=== PATIENT | female | born 1990 | race Caucasian/White ===

== ENCOUNTER → 2017-04-04 | Outpatient (CLI) | payer OTHER ==
[~2017-04-04] MED LIST: CEPH500C PO; HYDR-5688 PO; PRENTAB26 PO; VALA500T60 PO
[2017-04-04 11:37] LABS: URINE APPEARANCE CLEAR (CLEAR); URINE BILIRUBIN NEG (NEG); URINE COLOR YELLOW; URINE EPITHELIAL CELL AUTO >30 /lpf (0-5); URINE NITRITE NEG (NEG); UROBILINOGEN NEG (NEG)
[2017-04-04 11:54] LABS: MANUAL MICROSCOPIC REQUIRED? NO; REVIEW REQ? NO
[2017-04-04 12:11] LABS: HEMATOCRIT 35.9 % (37-47)
[2017-04-04 13:19] LABS: GTGD 50 Grams
== END | disposition home or self-care (01) ==
LOC: C.LAB1850 10:05
PROVIDERS: ATTEND Obstetrics & Gynecology
DX: Z34.90 Encounter for supervision of normal pregnancy, unspecified, unspecified trimester (principal)

== ENCOUNTER → 2017-04-25 | Outpatient (CLI) | payer BC, OTHER | END | disposition home or self-care (01) | LOC: C.LABSPEC 17:26 | PROVIDERS: ATTEND Obstetrics & Gynecology | DX: Z34.90 Encounter for supervision of normal pregnancy, unspecified, unspecified trimester (principal) ==

== ENCOUNTER 2017-05-20 00:47 | Inpatient (IN) | payer OTHER ==
[~2017-05-20] VITALS: Ht 167.6 cm; Wt 95.0 kg
[~2017-05-20 00:47] MED LIST changes: -CEPH500C PO; -HYDR-5688 PO; -VALA500T60 PO
[2017-05-20] MEDS ORDERED: LACTATED RINGER'S 1000ML 1,000 ML IV PRN (00:57)
[2017-05-20] MEDS ORDERED: LACTATED RINGER'S 1000ML 1,000 ML IV SCH (00:57)
[2017-05-20] MEDS ORDERED: FENTANYL CITRATE INJ 50 MCG/1 ML 2 ML VIAL ONE (01:07)
[2017-05-20] MEDS ORDERED: BUPIVACAINE 0.25% 30 ML VIAL ONE (01:07)
[2017-05-20] MEDS ORDERED: EpHEDrine SULFATE INJ 50 MG/ML AMP ONE (01:07)
[2017-05-20] MEDS ORDERED: FENTANYL 2MCG/ML ROPIV 1.25MG/ML 100ML BAG EPI ONE (01:07)
[2017-05-20 01:15] LABS: HEMATOCRIT 35.3 % (37-47); MEAN CELL VOLUME 84.9 fL (80-100); MEAN CORPUSCULAR HEMOGLOBIN 27.9 pg (25-34); MEAN CORPUSCULAR HGB CONC 32.9 g/dl (32-36); PLATELET COUNT 155 K/uL (130-400); RED BLOOD COUNT 4.16 M/uL (4.2-5.4); WHITE BLOOD COUNT 13.47 K/uL (4.8-10.8)
[2017-05-20] MEDS ORDERED: VALA500T60 PO (01:25)
[2017-05-20 01:28] VITALS: Ht 167.6 cm; Wt 95.0 kg
[2017-05-20] MEDS ORDERED: NALOXONE HCL INJ 1 MG in SODIUM CHLORIDE 0.9% 1000ML 1,000 ML IV PRN (01:59)
[2017-05-20] MEDS ORDERED: LACTATED RINGER'S 1000ML 500 ML IV PRN (01:59)
[2017-05-20] MEDS ORDERED: PROMETHAZINE HCL INJ 6.25 MG in SODIUM CHLORIDE 0.9% 50ML 50 ML IV PRN (02:00)
[2017-05-20] MEDS ORDERED: NALOXONE HCL INJ 0.4 MG/1 ML VIAL/CARP IV PRN (02:00)
[2017-05-20] MEDS ORDERED: FENTANYL 2MCG/ML ROPIV 1.25MG/ML 100ML BAG EPI PRN (02:00)
[2017-05-20] MEDS ORDERED: NALBUPHINE HCL INJ 10 MG/ML AMP IV PRN (02:00)
[2017-05-20] MEDS ORDERED: ONDANSETRON INJ 2 MG/ML 2 ML VIAL IV PRN (02:00)
[2017-05-20] MEDS ORDERED: EpHEDrine SULFATE INJ 50 MG/ML AMP IV PRN (02:00)
[2017-05-20] MEDS ORDERED: DiphenhydrAMINE HCL 50 MG/ML VIAL IV PRN (02:00)
[2017-05-20] MEDS ORDERED: OXYTOCIN 30 UNITS/500ML NSS IV ONE (04:38)
[2017-05-20] MEDS ORDERED: SUPERCREAM 0.870 % 15GM JAR EXT PRN (04:45)
[2017-05-20] MEDS ORDERED: HYDROCORTISONE ACETATE 25 MG SUPP PR PRN (04:45)
[2017-05-20] MEDS ORDERED: OXYCODONE/ACETAMINOPHEN 5-325 TAB PO PRN (04:45)
[2017-05-20] MEDS ORDERED: OXYTOCIN 30 UNITS/500ML NSS IV PRN (04:45)
[2017-05-20] MEDS ORDERED: LANOLIN OINT EXT PRN ×2 (04:45)
[2017-05-20] MEDS ORDERED: BENZOCAINE 20% AER SPR 82.5 GM CAN EXT PRN (04:45)
--- NOTE | 2017-05-20 04:50 | Vaginal Delivery Summary ---
Vaginal Delivery Summary Vaginal delivery summary The patient progressed to complete under epidural anesthesia she then began to push she spontaneously vaginally delivered a viable male from the cephalic presentation the head delivered in the left occiput anterior position followed by the anterior shoulder followed by the posterior shoulder followed by the body the baby was then placed on mother's abdomen and spontaneous cry was heard. Delayed cord clamping was performed and after 1 minute the cord was doubly clamped and cut. The placenta was then delivered spontaneously intact with a three-vessel cord. The uterus and vagina were cleared of all clots and debris. Pitocin was given. The uterus became firm. The cervix vagina and perineum were inspected and a first-degree perineal laceration was noted and repaired in standard fashion with 3-0 Vicryl. Excellent hemostasis was noted. Sponge, instrument and needle counts were correct 2 at the conclusion of the delivery. The mother and baby recovered well in the room in stable and good condition. Apgars 9 and 10. Estimated blood loss 300 mL.
[2017-05-20 06:45] VITALS: BP 112/74; PULSE 89; TEMP 36.7
[2017-05-20 07:20] VITALS: BP 94/57; PULSE 91; TEMP 36.9
[2017-05-20] MEDS: DOCUSATE SODIUM 100 MG CAP PO SCH ×2 (08:37→19:48)
--- NOTE | 2017-05-20 08:49 | Anesthesia Procedure Note ---
Anesthesia Epidural Removal Nt Date & Time May 20, 2017 at 08:48 Vital Signs Pain Intensity: 0.0 Vital Signs Past 12 Hours Date Time Temp Pulse Resp B/P (MAP) Pulse Ox O2 Delivery O2 Flow Rate FiO2 05/20/17 07:20 36.9 91 18 94/57 (69) Room Air 05/20/17 07:15 Room Air 05/20/17 06:45 36.7 89 18 112/74 Notes Mental Status: alert / awake / arousable, participated in evaluation Nausea / Vomiting: adequately controlled Pain: adequately controlled Airway Patency, RR, SpO2: stable & adequate BP & HR: stable & adequate Hydration State: stable & adequate Neuraxial Anesthesia: was administered Anesthetic Complications: no major complications apparent, pt satisfied with anesthetic care Epidural: removed without complications, with tip intact
[2017-05-20] MEDS: IBUPROFEN 600 MG TAB PO PRN ×3 (10:36→19:51)
[2017-05-20 11:50] VITALS: BP 98/62; PULSE 81; TEMP 36.7
[2017-05-20 16:15] VITALS: BP 111/77; PULSE 63; TEMP 36.7
[2017-05-20 19:45] VITALS: BP 116/77; PULSE 69; TEMP 36.4; O2SAT 98
[2017-05-20 23:50] VITALS: BP 104/66; PULSE 66; TEMP 36.4; O2SAT 96
[2017-05-21 03:45] VITALS: BP 100/69; PULSE 70; TEMP 36.5; O2SAT 96
--- NOTE | 2017-05-21 06:23 | OB/GYN Progress Note ---
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 Subjective conversation w/ patient, physical exam, chart review, lab review Ambulation: ambulating normally Voiding: no voiding problems Passing Gas: Yes (No BM yet) Diet Tolerance: Regular Diet Lochia: Small Feeding Type: Breast Feeding Pain: Says cramping with breast feeding only Review of Systems Constitutional: No fever, No chills Respiratory: No cough, No shortness of breath Cardiac: No chest pain Abdomen: No nausea, No vomiting, No diarrhea Female : No dysuria Objective Vital Signs Date Time Temp Pulse Resp B/P (MAP) Pulse Ox O2 Delivery O2 Flow Rate FiO2 05/21/17 03:45 36.5 70 16 100/69 (79) 96 Room Air 05/20/17 23:50 36.4 66 16 104/66 (79) 96 Room Air 05/20/17 23:50 Room Air 05/20/17 19:45 36.4 69 16 116/77 (90) 98 Room Air 05/20/17 19:45 Room Air 05/20/17 16:15 36.7 63 18 111/77 (88) Room Air 05/20/17 11:50 36.7 81 18 98/62 (74) Room Air 05/20/17 07:20 36.9 91 18 94/57 (69) Room Air 05/20/17 07:15 Room Air 05/20/17 06:45 36.7 89 18 112/74 Physical Exam General Appearance: WELL-APPEARING, WD/WN, NO APPARENT DISTRESS Respiratory/Chest: lungs clear, normal breath sounds Cardiovascular: regular rate, rhythm Abdomen: non tender, soft Fundus: Firm, Relation to Umbilicus (approx one down) Extremities: normal range of motion, non-tender, no pedal edema, no calf tenderness Laboratory Results Last 24 Hours Test 05/21/17 04:44 Assessment and Plan Post- Day Number: 1 Continue Routine Care: 27yo s/p , now PPD #1. - Blood type O pos. GBS negative. Rubella immune. - Vital signs reviewed and stable. - Pain controlled with motrin and percocet. - No leg swelling or tenderness on calf palpation. Encourage ambulation. - Encourage breast feeding. - Hemoglobin: 11.6, this am pending. Bleeding has improved. Continue to monitor clinically. -Continue routine post-vaginal delivery care. - Pt agreed with above plan, all current questions answered. Nathaniel Leija MD, PGY1 Physical Medicine Specialist Physician Supervision Note: I was present with Dr. Leija during the history and exam. I discussed the case with the resident and agree with the findings and plan as documented in the note. Any exceptions or clarifications are listed here: PPD#1 doing well. Would like to go home today. Discharge instructions discussed. RTO 6w. Documented By: Ludmila Thurman Resident Tracking Resident Involvement: Resident Care Provided Care Provided: OB Delivery (morning rounds)
[2017-05-21 07:24] VITALS: BP 91/56; PULSE 67; TEMP 36.4
--- NOTE | 2017-05-21 07:31 | Discharge Instructions ---
Discharge Instructions Date of Service May 21, 2017. Admission Reason for Admission: Spontaneous Onset Of Labor Discharge Discharge Diagnosis / Problem: Recovery from vaginal delivery Discharge Goals Goal(s): Routine recovery after delivery Medications Continue Dispensed Medications: supercream, dermaplast, tucks, lansinoh Activity Recommendations Activity Limitations: per Instructions/Follow-up section . Instructions / Follow-Up Instructions / Follow-Up ACTIVITY RECOMMENDATIONS: * Gradual return to full activity over the next 2-3 weeks. * No lifting - nothing heavier than baby over the next 2-3 weeks. * Do not engage in vigorous exercise, sexual activity or sports until cleared by your physician. * Do not drive or operate any motorized equipment until cleared by your physician. * You may shower/bathe daily. MEDICATIONS: For discomfort or pain, you may use Acetaminophen (Tylenol), Ibuprofen (Advil), or Naproxen (Aleve) following the package directions. For constipation you may use Colace following the package directions. BREAST CARE: If you are not breast feeding: * Wear a supportive bra 24 hours a day for one to two weeks. * Avoid stimulating your breasts and nipples as much as possible during the first few weeks after delivery. * When taking a shower, have the warm water hit your back, not breasts. * When your breasts feel full, apply ice packs. Usually three to four times a day helps ease the discomfort. * Take a mild pain medication (Tylenol / Motrin) when you are uncomfortable. If breast feeding: * Use breast milk to lubricate nipples. Lansinoh cream may be used for sore nipples. You do not need to remove cream prior to breast feeding. If using a different brand of cream, check the label for directions regarding removal of cream prior to nursing. * Wear a supportive bra. * If having problems with breasts or breast feeding, call a residential solar consultant or your health care provider. EPISIOTOMY CARE: After delivery, if you have an episiotomy (stitches), the following steps will ease discomfort and aid healing. * For the first 24 hours after delivery, place ice packs next to your episiotomy to help reduce swelling. * After the first 24 hour-period, sitz baths, either portable or in the tub, are suggested. A shower with a shower arm sprayed over the episiotomy may be comforting. * Aundrea care should be done after each voiding and bowel movement. Squirt warm water from a plastic bottle over the perineum (region of the body between the anus and urinary opening) and pat dry. * Use Dermoplast to ease discomfort. Shake container. Preemption directly over the episiotomy. Place a Tucks on a clean sanitary pad next to your episiotomy. SPECIAL CARE INSTRUCTIONS: When you are discharged from the hospital, it is important for you to follow the instructions listed below: * During the first week at home, you should be able to care for yourself and your baby. In addition, the usual light household activities are encouraged. * Limit your activities to the way you feel. Do not try to clean the house or move furniture. Be sensible. * If you actively engage in sports and have done so up until the time of your delivery, you may resume these activities as soon as you feel able. This may take up to one month or even longer. Use good judgment. * Continue to take your vitamins for at least six weeks after the of your baby. * Your diet need not be limited unless you were on a special diet before your delivery. Breast-feeding mothers need around 2500 calories per day and at least 64-80 ounces of fluid per day (8 to 10 glasses). * You should eat foods from the four major food groups. Crash diets or fad diets are to be avoided. Eating lean meats, fresh fruits and vegetables, low-fat dairy products, high fiber foods and a regular exercise program, will help you get back to your pre- weight without putting your health at risk. * Constipation is sometimes a problem after delivery. Take a mild laxative as needed. If breast feeding, Milk of Magnesia is acceptable to use. You may use a suppository or Fleets enema if no episiotomy. * A daily shower or tub bath is suggested. Be sure to thoroughly and gently dry the perineum. * A bloody vaginal discharge will usually continue until around four weeks post . A small amount of bleeding may continue for as long as six weeks. Vaginal discharge changes from the bright red bleeding after delivery to pink then brownish and finally yellowish-pink before becoming white and disappearing. * Bleeding may increase with activity. Your first period may come in 4-8 weeks. If you are breast feeding, your period may be delayed even longer. * Tama (sex) can begin whenever both you and your partner feel comfortable and do not have any form of genital infection. It is recommended that you wait at least six weeks for internal and external healing to occur. If you have questions, please talk to your health care practitioner. A condom should be used to prevent infection and . * Foreplay, gentle intercourse and lubrication is very important the first several times to prevent pain. A water-based lubricant such as K-Y jelly or Astroglide may be used. * If you have RH negative blood and your baby is RH positive, you will receive RHOGAM by injection prior to discharge. The nurse will give you a card to keep with you that has the date and place that you received RHOGAM after delivery. * During your care, you had a Rubella screen done to check for the presence of rubella antibodies in your blood. If your test was negative, you will receive a Rubella vaccine prior to discharge. This vaccine may cause a fever, soreness at the injection site and flu-like symptoms. If these symptoms persist, notify your health care practitioner. is not advised for one month after a Rubella vaccine. * Verbalizes understanding of car seat law as reviewed with patient nursing. * Car Seat hand-out given and reviewed with patient by nursing. * Shaken baby information reviewed with patient by nursing. Call you doctor if: * Heavy bleeding (saturating several pads an hour) or passing clots the size of your fist. * A fever >101 degrees F (38.3 degrees C) on two occasions four hours apart and /or chills. * Unusual pain in the pelvic or vaginal areas. * "Baby Blues" lasting longer than two weeks. If you have any questions or concerns, call your health care practitioner at . FOLLOW UP VISIT: * Please call the office at to schedule a 6 week examination. It is important you keep this appointment. It is important for you to make arrangements for either yearly or twice yearly check-ups thereafter. Current Hospital Diet Patient's current hospital diet: Regular OB Diet Discharge Diet Recommended Diet: Regular OB Diet Pending Studies Studies pending at discharge: no Medical Emergencies . Who to Call and When: Medical Emergencies: If at any time you feel your situation is an emergency, please call 911 immediately. . Non-Emergent Contact Non-Emergency issues call your: History Teacher . . "Provider Documentation" section prepared by Nathaniel Leija. . VTE Core Measure Inpt VTE Proph given/why not?: Treatment not indicated
[2017-05-21 08:18] LABS: HEMATOCRIT 34.5 % (37-47)
[2017-05-21] MEDS: DOCUSATE SODIUM 100 MG CAP PO SCH (09:03)
[2017-05-21] MEDS: IBUPROFEN 600 MG TAB PO PRN (09:04)
[2017-05-21 10:30] VITALS: BP_DIAS 56; PULSE 67; TEMP 36.4
[2017-05-21] MEDS ORDERED: BISACODYL 5 MG TABEC PO SCH (20:00)
== END 2017-05-21 10:35 | disposition home or self-care (01) | DRG 775 ==
LOC: C.OPB 00:47 → C.LD 00:48 → C.OPB 00:59 → C.OBG 06:51
PROVIDERS: ADMIT Obstetrics & Gynecology; ATTEND Obstetrics & Gynecology
PROC: 10E0XZZ Delivery of Products of Conception, External Approach (ICD-10-PCS; principal; 2017-05-20)
PROC: 0HQ9XZZ Repair Perineum Skin, External Approach (ICD-10-PCS; principal; 2017-05-20)
DX: O70.0 First degree perineal laceration during delivery (principal); Z37.0 Single live birth; Z3A.40 40 weeks gestation of pregnancy

== ENCOUNTER 2017-06-14 15:34 | Emergency (ER) | payer OTHER ==
[~2017-06-14] VITALS: Ht 165.1 cm; Wt 83.0 kg
[~2017-06-14 15:34] MED LIST changes: +VALA500T60 PO
[2017-06-14 15:52] VITALS: TEMP 36.6; Ht 165.1 cm; Wt 83.0 kg
[2017-06-14] MEDS ORDERED: HYDR-5688 PO (16:09)
[2017-06-14] MEDS ORDERED: CEPH500C PO (16:09)
[2017-06-14] MEDS ORDERED: HYDROCODONE/ACETAMOPHEN 5/325MG TAB PO ONE (16:15)
[2017-06-14] MEDS ORDERED: BACITRACIN OINT 15 GM TUBE EXT ONE (16:15)
[2017-06-14] MEDS ORDERED: CEPHALEXIN MONOHYDRATE 250 MG CAP PO ONE (16:15)
[2017-06-14 16:31] VITALS: BP 124/66; PULSE 72; O2SAT 99
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
== END 2017-06-14 16:33 | disposition home or self-care (01) ==
LOC: C.EDB 15:35 → C.EDD 16:33
DX: T23.009A Burn of unspecified degree of unspecified hand, unspecified site, initial encounter (principal); X58.XXXA Exposure to other specified factors, initial encounter

== ENCOUNTER → 2017-06-25 | Outpatient (CLI) | payer OTHER ==
[~2017-06-25] MED LIST changes: +HYDR-5688 PO
== END | disposition home or self-care (01) ==
LOC: C.PAPS 13:46
PROVIDERS: ATTEND Obstetrics & Gynecology
DX: Z39.2 Encounter for routine postpartum follow-up (principal)

== ENCOUNTER 2024-04-25 18:46 | Inpatient (IN) ==
[2024-04-25] MEDS ORDERED: LIDOCAINE 1% LOCAL 20 ML VIAL INFIL PRN (19:19)
[2024-04-25] MEDS: LACTATED RINGER'S 1,000 ML IV PRN (19:27)
[2024-04-25] MEDS ORDERED: BUPIVACAINE 0.25% PF 30 ML VIAL ONE (19:43)
[2024-04-25] MEDS ORDERED: SODIUM CHLORIDE 0.9% PF INJ 10 ML VIAL ONE (19:43)
[2024-04-25] MEDS ORDERED: ePHEDrine sulfate 50 MG/ML AMP ONE (19:43)
[2024-04-25] MEDS ORDERED: LIDOCAINE 2%/EPINEPHRINE 1:200,000 20 ML PF ONE (19:43)
[2024-04-25] MEDS ORDERED: fentANYL 2 MCG/ML BUPIVacaine 0.125%-NSS 100ML BAG ONE (19:43)
[2024-04-25] MEDS ORDERED: fentaNYL citrate PF 100 MCG/2 ML VIAL ONE (19:43)
[2024-04-25] MEDS ORDERED: OXYTOCIN 30 UNITS/500ML NSS IV ONE (19:44)
[2024-04-25 19:47] LABS: Hematocrit (blood only) 35.3 % (37.0-47.0); Mean Corpuscular Hemoglobin 28.6 pg (25.0-34.0); Mean Corpuscular Volume 84.2 fL (80.0-100.0); Mean Platelet Volume 11.2 fL (9.4-12.4); Platelet Count 171 K/uL (130-400); RDW Standard Deviation 42.6 fL (36.4-46.3); Red Blood Count 4.19 M/uL (4.20-5.40); White Blood Count 8.72 K/ul (4.8-10.8)
[2024-04-25] MEDS ORDERED: fentaNYL citrate PF 100 MCG/2 ML VIAL EPI PRN (19:58)
[2024-04-25] MEDS ORDERED: LIDOCAINE 2% MPF LOCAL 5 ML VIAL EPI PRN (19:58)
[2024-04-25] MEDS ORDERED: ROPIVACAINE 0.5% PF 5 MG/ML 20 ML VIAL EPI PRN (19:58)
[2024-04-25] MEDS ORDERED: SODIUM CHLORIDE 0.9% PF INJ 10 ML VIAL EPI PRN (19:58)
[2024-04-25] MEDS ORDERED: diphenhydrAMINE 50 MG/ML VIAL IV PRN (19:58)
[2024-04-25] MEDS ORDERED: NALOXONE HCL 0.4 MG/1 ML VIAL/CARP IV PRN (19:58)
[2024-04-25] MEDS ORDERED: BUPIVACAINE 0.25% PF 30 ML VIAL EPI PRN (19:58)
[2024-04-25] MEDS ORDERED: NALOXONE HCL 1 MG in SODIUM CHLORIDE 0.9% 1,000 ML IV PRN (19:58)
[2024-04-25] MEDS ORDERED: NALBUPHINE HCL 5 MG in SYRINGE 0 ML IV PRN (19:58)
[2024-04-25] MEDS ORDERED: ePHEDrine sulfate 50 MG/ML AMP IV PRN (19:58)
--- NOTE | 2024-04-25 19:58 | Anesthesiology Consultation ---
Date of Service April 25, 2024 Assessment & Plan Chart Review Chart Review: Patient NOT seen in Pre Admission Testing and Acceptable Risk for Labor Epidural Consults Requested none ASA ASA2 Proposed Anesthesia Anesthesia Type: Labor Epidural Risk / Benefits Reviewed With: PT / POA / Parent / Guardian, Accepts Plan and Informed Consent Obtained History Height/Weight Height: 5 ft 5 in Weight: 100.244 kg Allergies Allergy/AdvReac Type Severity Reaction Status Date / Time No Known Drug Allergies Allergy unkown Verified 04/25/24 18:58 Medications Home Medications Medication Instructions Recorded Confirmed Last Taken vit 168-iron 27 mg-folic 1 cap PO DAILY 09/13/23 04/25/24 Unknown acid 800 mcg-omega3 235 mg capsule (One-A-Day -1) Active Medications Generic Name Dose Route Start Last Admin Trade Name Freq PRN Reason Stop Dose Admin Lactated Ringer's 1,000 mls @ 125 mls/hr 04/25/24 19:19 04/25/24 19:27 Lr IV 04/27/24 19:18 999 mls/hr .Q8H PRN Administration L&D Protocol Protocol NPO Date Last Intake of Fluids: 04/25/24 Time Last Intake of Fluids: 19:30 Date Last Intake of Solids: 04/25/24 Time Last Intake of Solids: 14:30 Past Medical History Medical History History of chlamydia Herpes simplex type 1 infection IUD (intrauterine device) in place 08/14/2017 [place] Patient denies significant medical history Exercise / Class Metabolic Activity 1 > 8 Run/Swim/Ski/Tennis Past Family History Family History Mother Diabetes Aunt Breast cancer great maternal aunt Grandmother Breast cancer maternal great grandmother Denies family history of Ovarian cancer Colorectal cancer Uterine cancer Past Anesthesia History No Hx of Anesthesia Complications, Difficult Airway and No Family Hx of Anesthesia Complications History of PONV No Hx of PONV and No Hx of Motion Sickness Social History Smoking cigarettes per day: varies Do You Dip or Chew Tobacco: No Hx Alcohol Use: No Hx Substance Use: No substance use type: does not use Review of Systems ROS Unobtainable: All systems reviewed & are unremarkable except as noted in HPI & below Physical Exam Vital Signs Last Vital Signs Temp 37.0 C 04/25/24 19:00 Pulse 91 H 04/25/24 19:00 Resp 18 04/25/24 19:00 BP 121/82 04/25/24 19:00 ENMT Mouth: no TMJ abnormality Thyromental Distance: > or= 3.5 Finger Breadths Mallampati Class: III Neck normal visual inspection and trachea midline; neck extension not limited Respiratory normal respiratory effort Auscultation: lungs clear to auscultation bilaterally Cardiovascular Rate/Rhythm: regular rate and regular rhythm Heart Sounds: no murmur Musculoskeletal Spine: normal cervical ROM Extremities: full ROM of extremities Neurologic moves all extremities Psychiatric Orientation: alert and oriented x 3 Testing Laboratory Results 04/25/24 19:35
[2024-04-25] MEDS: fentaNYL citrate PF 100 MCG/2 ML VIAL EPI STA (20:21)
[2024-04-25] MEDS: BUPIVACAINE 0.25% PF 30 ML VIAL EPI STA (20:22)
[2024-04-25] MEDS: LIDOCAINE 2%/EPINEPHRINE 1:200,000 20 ML PF EPI STA (20:22)
[2024-04-25] MEDS: fentANYL 2 MCG/ML BUPIVacaine 0.125%-NSS 100ML BAG EPI PRN (20:23)
[2024-04-25] MEDS: SODIUM CHLORIDE 0.9% PF INJ 10 ML VIAL EPI STA (21:13)
--- NOTE | 2024-04-25 21:16 | Labor Progress Brief Note ---
Date of Service April 25, 2024 Subjective comfortable with epidural Assessment & Plan (1) Two vessel umbilical cord in lawson , antepartum: (2) Normal labor: Plan: Cont curr mgmt, anticipate Admission and Anticipated Discharge Date Admission Date: April 25, 2024 Physical Exam 2 Genitourinary: 9/+1 SROM for clear during exam FHT Cat 1 [place] not well traced currently Results & Data Vital Signs (Past 12 Hours) Vital Signs Temp Pulse Resp BP Pulse Ox 04/25/24 21:13 100 04/25/24 21:13 93 H 04/25/24 21:11 79 04/25/24 21:11 131/71 04/25/24 21:10 86 L 04/25/24 21:10 86 04/25/24 21:08 100 04/25/24 21:08 81 04/25/24 21:03 100 04/25/24 21:03 75 04/25/24 21:02 88 L 04/25/24 21:02 79 04/25/24 20:58 100 04/25/24 20:58 80 04/25/24 20:57 90 04/25/24 20:57 87 04/25/24 20:53 100 04/25/24 20:53 86 04/25/24 20:53 115/67 04/25/24 20:49 76 04/25/24 20:49 127/71 04/25/24 20:48 100 04/25/24 20:48 70 04/25/24 20:44 76 04/25/24 20:44 120/66 04/25/24 20:43 100 04/25/24 20:43 71 04/25/24 20:39 76 04/25/24 20:39 121/66 04/25/24 20:38 100 04/25/24 20:38 78 04/25/24 20:33 100 04/25/24 20:33 83 04/25/24 20:33 81 04/25/24 20:33 120/69 04/25/24 20:28 100 04/25/24 20:28 83 04/25/24 20:28 74 04/25/24 20:28 121/65 04/25/24 20:26 113 H 04/25/24 20:26 122/78 04/25/24 20:24 85 04/25/24 20:24 115/68 04/25/24 20:23 100 04/25/24 20:23 81 04/25/24 20:22 77 04/25/24 20:22 116/68 04/25/24 20:20 68 04/25/24 20:20 107/82 04/25/24 20:18 100 04/25/24 20:18 73 04/25/24 20:18 85 04/25/24 20:18 120/79 04/25/24 20:13 99 04/25/24 20:13 96 H 04/25/24 20:08 97 04/25/24 20:08 79 04/25/24 20:03 99 04/25/24 20:03 77 04/25/24 20:01 90 04/25/24 20:01 104 H 04/25/24 19:58 98 04/25/24 19:58 78 04/25/24 19:00 98.6 F 91 H 18 121/82 04/25/24 18:56 18 04/25/24 18:56 98.6 F 18 04/25/24 18:55 91 H 121/82 Coding Level of Care Code None Diagnoses Two vessel umbilical cord in [place] , antepartum O09.899 Normal labor O80; Z37.9
[2024-04-25] MEDS: OXYTOCIN 30 UNITS/NSS 30 UNITS/500 ML BAG IV PRN (22:10)
--- NOTE | 2024-04-25 22:17 | Delivery Summary ---
Vaginal Delivery Summary Date of Service April 25, 2024 Vaginal Delivery Summary DIAGNOSES: 1. Duran intrauterine at 39w2d gestation. 2. Spontaneous onset of labor. 3. Group B Streptococcus Neg 4. Two vessel cord with velamentous insertion PROCEDURE: Spontaneous vaginal delivery and repair of R periclitoral laceration. SURGEON: Porsha Marroquin MD. GAME MODERATOR: None. QUANTITATIVE BLOOD LOSS: 306 mL. COMPLICATIONS: None. PLACENTA: Spontaneous and intact with a 3-vessel cord. DISPOSITION: Stable to labor and delivery. DESCRIPTION: The patient pushed well and brought the head to in OA position. The infant's head was allowed to deliver with contraction force and no further active pushing, with the perineum protected during this time. There was no nuchal cord. The left shoulder was anterior. The shoulders and body delivered without any difficulty, and the was placed on the maternal abdomen. It was vigorous and moving all extremities, and making respiratory efforts. The cord was doubly clamped by the MD and then cut by the support person. The cervix, vagina and perineum were examined and were found to be intact other than a R periclitoral tear, which was closed usig 4-0 vicryl in a running locked manner. After repair, bladder was straight-cathed for 150cc urine.. The placenta did not deliver with gentle traction, however the 2VC (as anticipated based on US) cord avulsed with a segment of membrane attached to its proximal end. The placenta was manually extracted and examined; it appears to be complete, though partially disrupted where I grasped it. The membranes show evidence of velamentous insertion with the two vessels traveling several centimeters off the placental disk prior to reaching the spot from which the cord apparently avulsed. The fundus was firm and lochia minimal immediately after delivery. [facility] Vaginal Delivery Charge Vaginal Delivery Codes: 55115 global code for the antepartum, delivery, and post-
[2024-04-25] MEDS ORDERED: DIPHTHER/TETAN/PERTUS Vaccine (Tdap, Adol/Adult) 0.5mL IM ONE (22:31)
[2024-04-25] MEDS ORDERED: oxyCODONE/ACETAMINOPHEN 5mg/325mg TAB PO PRN (22:31)
[2024-04-25] MEDS ORDERED: OXYTOCIN 30 UNITS/NSS 30 UNITS/500 ML BAG IV PRN (22:31)
[2024-04-25] MEDS ORDERED: HYDROCORTISONE ACETATE 25 MG SUPP PR PRN (22:31)
[2024-04-25] MEDS ORDERED: ACETAMINOPHEN 325 MG TAB PO PRN (22:31)
[2024-04-25] MEDS: AMPICILLIN/SULBACTAM SOD 3,000 MG in SODIUM CHLOR 0.9% MINI-B 100 ML IV STA (22:49)
[2024-04-25] MEDS: BENZOCAINE 20% SPRY 85 APPLN/85 GM CAN EXT PRN (23:06)
[2024-04-25] MEDS: IBUPROFEN 600 MG TAB PO PRN (23:19)
--- NOTE | 2024-04-26 05:43 | Obstetrical Progress Note ---
Date of Service April 26, 2024 Assessment & Plan (1) care following vaginal delivery: Plan Feels well today. Eating well, voiding well, ambulating well. Pain well controlled with prn ibuprofen. Routine care; OOB, ambulation, continue regular diet. Anticipate discharge 24-48 hours after , late today or tomorrow. After discharge will have 6 week follow-up with Dr. Marroquin. Subjective Pt is a 33 y/o female who is PPD#1 following at 39 weeks. Today, pt states she is feeling well. Bleeding and cramping are mild but increased this period compared to when she had her last two kids. She is breast feeding and it is going well. She is otherwise doing well, tolerating oral intake, ambulating, and voiding without issue. No questions or complaints at this time. Constitutional: no fever, no chills or no sweats Respiratory: no dyspnea Cardiovascular: no chest pain or no palpitations Breast: no breast pain Genitourinary (female): no dysuria Neurologic: no headache(s) no changes in vision, no headaches Physical Exam General: Alert, oriented. No acute distress. Cardiac: Regular rate and rhythm, no murmurs, rubs, or gallops. Respiratory: Clear to auscultation bilaterally, no wheezes/rales/rhonchi. No increased work of breathing. Symmetrical chest rise. No respiratory distress. Abdomen: Soft, nontender, nondistended. Bowel sounds present. Uterus: Uterine fundus firm, palpable below the umbilicus. Lower extremities: No lower extremity edema or swelling. No deep calf pain. Results & Data Vital Signs (Past 12 Hours) Vital Signs Temp Pulse Resp BP Pulse Ox 04/26/24 00:15 20 04/26/24 00:15 71 122/67 04/26/24 00:00 82 116/69 04/25/24 23:45 18 04/25/24 23:45 68 04/25/24 23:45 117/74 04/25/24 23:30 67 04/25/24 23:30 114/68 04/25/24 23:15 18 04/25/24 23:15 90 04/25/24 23:15 113/74 04/25/24 23:00 20 04/25/24 23:00 75 04/25/24 23:00 110/74 04/25/24 22:45 18 04/25/24 22:45 82 04/25/24 22:45 112/78 04/25/24 22:30 20 04/25/24 22:30 72 04/25/24 22:30 106/70 04/25/24 22:18 98 04/25/24 22:18 81 04/25/24 22:15 18 04/25/24 22:14 78 04/25/24 22:14 105/71 04/25/24 22:13 97 04/25/24 22:13 85 04/25/24 22:08 99 04/25/24 22:08 76 04/25/24 22:03 99 04/25/24 22:03 77 04/25/24 21:58 97 04/25/24 21:58 86 04/25/24 21:55 81 L 04/25/24 21:55 93 H 04/25/24 21:53 100 04/25/24 21:53 80 04/25/24 21:48 100 04/25/24 21:48 88 04/25/24 21:43 100 04/25/24 21:43 87 04/25/24 21:40 86 04/25/24 21:40 116/69 04/25/24 21:38 100 04/25/24 21:38 104 H 04/25/24 21:33 99 04/25/24 21:33 78 04/25/24 21:28 100 04/25/24 21:28 83 04/25/24 21:26 82 04/25/24 21:26 126/71 04/25/24 21:25 88 L 04/25/24 21:25 95 H 04/25/24 21:23 100 04/25/24 21:23 81 04/25/24 21:18 100 04/25/24 21:18 73 04/25/24 21:13 100 04/25/24 21:13 93 H 04/25/24 21:11 79 04/25/24 21:11 131/71 04/25/24 21:10 86 L 04/25/24 21:10 86 04/25/24 21:08 100 04/25/24 21:08 81 04/25/24 21:03 100 04/25/24 21:03 75 04/25/24 21:02 88 L 04/25/24 21:02 79 04/25/24 20:58 100 04/25/24 20:58 80 04/25/24 20:57 90 04/25/24 20:57 87 04/25/24 20:53 100 04/25/24 20:53 86 04/25/24 20:53 115/67 04/25/24 20:49 76 04/25/24 20:49 127/71 04/25/24 20:48 100 04/25/24 20:48 70 04/25/24 20:44 76 04/25/24 20:44 120/66 04/25/24 20:43 100 04/25/24 20:43 71 04/25/24 20:39 76 04/25/24 20:39 121/66 04/25/24 20:38 100 04/25/24 20:38 78 04/25/24 20:33 100 04/25/24 20:33 83 04/25/24 20:33 81 04/25/24 20:33 120/69 04/25/24 20:28 100 04/25/24 20:28 83 04/25/24 20:28 74 04/25/24 20:28 121/65 04/25/24 20:26 113 H 04/25/24 20:26 122/78 04/25/24 20:24 85 04/25/24 20:24 115/68 04/25/24 20:23 100 04/25/24 20:23 81 04/25/24 20:22 77 04/25/24 20:22 116/68 04/25/24 20:20 68 04/25/24 20:20 107/82 04/25/24 20:18 100 04/25/24 20:18 73 04/25/24 20:18 85 04/25/24 20:18 120/79 04/25/24 20:13 99 04/25/24 20:13 96 H 04/25/24 20:08 97 04/25/24 20:08 79 04/25/24 20:03 99 04/25/24 20:03 77 04/25/24 20:01 90 04/25/24 20:01 104 H 04/25/24 19:58 98 06/14/24 19:58 78 04/25/24 19:00 37.0 C 91 H 18 121/82 04/25/24 18:56 18 04/25/24 18:56 37.0 C 18 04/25/24 18:55 91 H 121/ Resident Activity Tracking Resident Involvement: Resident Care Provided Care Provided: OB Delivery
[2024-04-26 07:24] LABS: Hematocrit (blood only) 30.3 % (37.0-47.0); Hemoglobin 10.1 g/dl (12.0-16.0); Mean Corpuscular Hgb Conc 33.3 g/dL (32.0-36.0); Mean Corpuscular Volume 83.9 fL (80.0-100.0); Mean Platelet Volume 11.7 fL (9.4-12.4); Platelet Count 161 K/uL (130-400); RDW Coefficient of Variation 13.9 % (11.5-14.5); RDW Standard Deviation 42.6 fL (36.4-46.3); Red Blood Count 3.61 M/uL (4.20-5.40); White Blood Count 11.14 K/ul (4.8-10.8)
[2024-04-26] MEDS: PRENATAL VITAMIN 1 TAB PO SCH (08:55)
[2024-04-26] MEDS: DOCUSATE SODIUM 100 MG CAP PO SCH (08:55)
--- NOTE | 2024-04-26 09:35 | Anesthesia Procedure Note ---
Date of Service April 26, 2024 Anesthesia Post Epidural Note Vital Signs Vital Signs: Temp Pulse Resp BP Pulse Ox 37.0 C 71 20 122/67 98 04/25/24 19:00 04/26/24 00:15 04/26/24 00:15 04/26/24 00:15 04/25/24 22:18 Pain Intensity Episiotomy/Laceration: Pain Intensity: 5 Notes Mental Status: alert / awake / arousable and participated in evaluation Nausea / Vomiting: adequately controlled Pain: adequately controlled Airway Patency, RR, SpO2: stable & adequate BP & HR: stable & adequate Hydration State: stable & adequate Neuraxial Anesthesia: was administered and sensory block resolved Anesthetic Complications: no major complications apparent and Pt Satisfied with anesthetic care Epidural: Removed without complications and With tip intact
[2024-04-26] MEDS ORDERED: bisacodyL 5 MG TABEC PO SCH (20:00)
[2024-04-27] MEDS ORDERED: bisacodyL 10 MG SUPP PR PRN
== END 2024-04-26 17:55 | disposition home or self-care (01) | DRG 807 ==
LOC: LAB 18:46 → 4S1 18:48 → 4E2 04-26 00:49

== ENCOUNTER 2025-05-29 06:13 | Inpatient (IN) ==
[2025-05-29] MEDS ORDERED: LIDOCAINE 1% LOCAL 20 ML VIAL INFIL PRN (06:43)
[2025-05-29] MEDS ORDERED: LACTATED RINGER'S 1,000 ML IV PRN (06:43)
[2025-05-29] MEDS: OXYTOCIN 30 UNITS/NSS 30 UNITS/500 ML BAG IV PRN (06:55)
--- NOTE | 2025-05-29 07:12 | Delivery Summary ---
Vaginal Delivery Summary Date of Service May 29, 2025 Vaginal Delivery Summary Patient progressed to 10 cm dilated 100% effaced +2 station and pushed over intact perineum without epidural delivery of viable female with weight and Apgars pending. Labor and delivery were precipitous and pushing over 1-2 contractions total. Head of the delivered without difficulty quickly followed by shoulders and body. was noted to be vigorous upon delivery and a 1 minute delayed cord clamping was initiated. Cord is then doubly clamped and cut and remained on maternal abdomen. Cord blood obtained and attention turned delivery the placenta was delivered intact with three-vessel cord gentle cord traction. Inspection of perineum, vagina and cervix there is noted to be no lacerations. Patient was given 100 mcg of Cytotec and Pitocin per protocol. No complications noted blood loss per QBL [facility] Vaginal Delivery Charge Delivery Type Details: [facility]
[2025-05-29] MEDS ORDERED: OXYTOCIN 30 UNITS/NSS 30 UNITS/500 ML BAG IV PRN (07:22)
[2025-05-29] MEDS ORDERED: HYDROCORTISONE ACETATE 25 MG SUPP PR PRN (07:22)
[2025-05-29] MEDS ORDERED: DIPHTHER/TETAN/PERTUS Vaccine (Tdap, Adol/Adult) 0.5mL IM ONE (07:22)
[2025-05-29] MEDS: BENZOCAINE 20% SPRY 85 APPLN/85 GM CAN EXT PRN (08:45)
[2025-05-29] MEDS: IBUPROFEN 600 MG TAB PO PRN (08:45)
[2025-05-29] MEDS: PRENATAL VITAMIN 1 TAB PO SCH (09:34)
[2025-05-29] MEDS: Patient's HEIGHT &/or WEIGHT Needed STA (09:34)
[2025-05-29] MEDS: DOCUSATE SODIUM 100 MG CAP PO SCH (09:34)
[2025-05-29 09:39] VITALS: RESP 18
[2025-05-29] MEDS: ACETAMINOPHEN 325 MG TAB PO PRN (14:33)
[2025-05-30 04:21] VITALS: O2SAT 96
[2025-05-30 06:38] LABS: Hematocrit (blood only) 29.1 % (37.0-47.0); Hemoglobin 9.5 g/dl (12.0-16.0); Mean Corpuscular Hemoglobin 27.3 pg (25.0-34.0); Mean Corpuscular Volume 83.6 fL (80.0-100.0); Platelet Count 158 K/uL (130-400); RDW Standard Deviation 43.1 fL (36.4-46.3); Red Blood Count 3.48 M/uL (4.20-5.40); White Blood Count 10.98 K/ul (4.8-10.8)
--- NOTE | 2025-05-30 07:20 | Obstetrical Progress Note ---
Date of Service <Jim Diane MD - Last Filed: 05/30/25 07:26> May 30, 2025 Assessment & Plan <Jim Diane MD - Last Filed: 05/30/25 07:26> (1) care and examination: 35 yo post- day 1 s/p Fells well today Continue post- care Encourage ambulation and Pain controlled with Ibuprofen, Tylenol Vital Signs and Hgb stable Advised Hep B vaccine Discharge home today, follow up with OB provider in 6 weeks D/c instructions discussed <Ludmila Thurman DO - Last Filed: 05/30/25 08:28> (1) care and examination: Subjective <Jim Diane MD - Last Filed: 05/30/25 07:26> 35yo post- day 1 s/p Ambulation: Ambulating normally Voiding: No voiding problems Passing Gas:: Yes Diet Tolerance:: regular diet Lochia:: Small Feeding Type:: Current Pain Level: 0/10 controlled with Tylenol, Ibuprofen Resting comfortably this AM in NAD. Denies WU, CP, SOB, N/V/D, LE pain/swelling. Physical Exam <Jim Diane MD - Last Filed: 05/30/25 07:26> General: patient resting comfortably, NAD, non-toxic in appearance, answers questions appropriately Skin: warm, dry, intact Heart: S1/S2 heard, regular, no m/r/g Lungs: equal air entry bilaterally, no rales/rhonchi/wheezes Abd: Normoactive BS, soft, NT/ND, uterine fundus firm below umbilicus Ext: warm, no clubbing/cyanosis or edema, Ramiro's neg Neuro: nonfocal, patient AAOx4, speech intact, no facial droop, moving all extremities on command Results & Data <Jim Diane MD - Last Filed: 05/30/25 07:26> Vital Signs (Past 12 Hours) Vital Signs Temp Pulse Resp BP Pulse Ox O2 Del Method 05/30/25 04:00 36.5 C 60 18 102/67 96 Room Air 05/30/25 00:00 36.5 C 62 18 107/61 97 Room Air 05/29/25 19:30 36.7 C 75 18 109/69 97 Room Air Supervising Physician <Ludmila Thurman DO - Last Filed: 05/30/25 08:28> Co-Signing Physician Notes Resident Physician Supervision Note: I interviewed and examined the patient. Discussed with Dr. Diane and agree with findings and plan as documented in the note. Any exceptions or clarifications are listed here: PPD#1 doing well. DC home. Documented By: Ludmila Thurman DO Resident Activity Tracking <Jim Diane MD - Last Filed: 05/30/25 07:26> Resident Involvement: Resident Care Provided Care Provided: OB Delivery
[2025-05-30 09:24] VITALS: BP 104/69; PULSE 70; TEMP 97.9
== END 2025-05-30 12:40 | disposition home or self-care (01) | DRG 807 ==
LOC: OPB 06:13 → 4S1 06:24 → 4E2 09:13